=== PATIENT | female | born 1960 | race Caucasian/White ===

== ENCOUNTER 2024-03-18 23:42 | Emergency (ER) | payer MEDICARE, MEDICAID ==
[~2024-03-18] VITALS: Ht 165.1 cm; Wt 59.0 kg
[2024-03-19 00:20] VITALS: O2SAT 98
[2024-03-19 01:46] VITALS: TEMP 36.6
[2024-03-19 02:57] LABS: HEMATOCRIT 44.3 % (36.0-48.0); HEMOGLOBIN 14.7 g/dL (12.0-16.0)
[2024-03-19] MEDS ORDERED: ACET-2708 MT (02:59)
[2024-03-19 05:03] VITALS: BP 140/78; PULSE 76; RESP 13; O2SAT 100
== END 2024-03-19 04:53 | disposition home or self-care (01) ==
LOC: ER 23:42
DX: S00.03XA Contusion of scalp, initial encounter (principal); F03.90 Unspecified dementia, unspecified severity, without behavioral disturbance, psychotic disturbance, mood disturbance, and anxiety; W06.XXXA Fall from bed, initial encounter; Y93.89 Activity, other specified; Y92.89 Other specified places as the place of occurrence of the external cause; Y99.8 Other external cause status
CPT/HCPCS: 36415; 85014; 85018; 99284